=== PATIENT | male | born 1980 | race Native Hawaiian/Other Pacific Islander ===

== ENCOUNTER 2018-04-01 21:46 | Emergency (ER) | payer OTHER ==
[~2018-04-01] VITALS: Ht 177.8 cm; Wt 87.1 kg
[~2018-04-01 21:46] MED LIST: CLON0.5T36 PO; CYCL10TA35 PO; OMEP40CA PO; TRAMADOL HCL100 M1 PO
[2018-04-02 01:17] VITALS: BP 145/97; TEMP 97.9
== END 2018-04-02 01:17 | disposition home or self-care (01) ==
LOC: ED 21:46
DX: S62.303A Unspecified fracture of third metacarpal bone, left hand, initial encounter for closed fracture (principal); W01.0XXA Fall on same level from slipping, tripping and stumbling without subsequent striking against object, initial encounter
CPT/HCPCS: 99283

== ENCOUNTER 2021-03-17 12:50 | Outpatient (CLI) | payer OTHER ==
[~2021-03-17] VITALS: Ht 175.3 cm; Wt 90.7 kg
== END 2021-03-17 20:18 | disposition home or self-care (01) ==
LOC: INF 12:50
PROVIDERS: ATTEND Family Medicine
DX: Z23 Encounter for immunization (principal); U07.1 COVID-19
CPT/HCPCS: 96365; M0244

== ENCOUNTER 2021-06-25 02:52 | Emergency (ER) | payer OTHER ==
[~2021-06-25] VITALS: Ht 175.3 cm; Wt 90.7 kg
[2021-06-25 03:00] VITALS: BP 152/93; TEMP 97
[2021-06-25 04:04] LABS: PLATELET COUNT 362 K/uL (142-355)
[2021-06-25 04:11] LABS: POTASSIUM 4.1 mmol/L (3.6-5.2)
[2021-06-25 04:22] LABS: PARTIAL THROMBOPLASTIN TIME 22.4 SECONDS (24.5-33.6)
== END 2021-06-25 04:00 | disposition still patient (30) ==
LOC: ED 02:52
PROVIDERS: Hospitalist
DX: S09.8XXA Other specified injuries of head, initial encounter (principal); S06.0X0A Concussion without loss of consciousness, initial encounter; M25.512 Pain in left shoulder; F10.129 Alcohol abuse with intoxication, unspecified; Y90.8 Blood alcohol level of 240 mg/100 ml or more; W17.89XA Other fall from one level to another, initial encounter; Y92.098 Other place in other non-institutional residence as the place of occurrence of the external cause
CPT/HCPCS: 36415; 80053; 80307; 80320; 81000; 85027; 85610; 85730; 99283; J1885; J2405; J3411; J3475; J3490

== ENCOUNTER 2021-11-21 09:40 | Outpatient (CLI) | payer BC | END 2021-11-21 18:56 | disposition home or self-care (01) | LOC: RAD 09:40 | PROVIDERS: ATTEND Nurse Practitioner Family | DX: M54.2 Cervicalgia (principal); M54.6 Pain in thoracic spine ==

== ENCOUNTER 2021-12-09 08:38 | Outpatient (CLI) | payer BC | END 2021-12-09 18:53 | disposition home or self-care (01) | LOC: MRI 08:38 | PROVIDERS: ATTEND Nurse Practitioner Family | DX: M47.812 Spondylosis without myelopathy or radiculopathy, cervical region (principal) ==

== ENCOUNTER 2022-01-19 07:41 | Outpatient (CLI) | payer BC | END 2022-01-19 20:33 | disposition home or self-care (01) | LOC: CT 07:41 | PROVIDERS: ATTEND Neurological Surgery | DX: M47.22 Other spondylosis with radiculopathy, cervical region (principal) ==

== ENCOUNTER 2022-08-11 10:08 | Outpatient (CLI) | payer BC | END 2022-08-11 19:14 | disposition home or self-care (01) | LOC: RAD 10:08 | PROVIDERS: ATTEND Nurse Practitioner Primary Care | DX: M25.562 Pain in left knee (principal) ==

== ENCOUNTER 2022-11-20 07:39 | Outpatient (CLI) | payer BC | END 2022-11-20 19:32 | disposition home or self-care (01) | LOC: RAD 07:39 | PROVIDERS: ATTEND Nurse Practitioner Primary Care | DX: M79.644 Pain in right finger(s) (principal) ==

== ENCOUNTER 2022-12-08 07:43 | Outpatient (CLI) | payer BC | END 2022-12-08 19:21 | disposition home or self-care (01) | LOC: RAD 07:43 | PROVIDERS: ATTEND Physician Assistant | DX: M25.511 Pain in right shoulder (principal); M25.512 Pain in left shoulder ==